=== PATIENT | female | born 1955 | race Caucasian/White ===

== ENCOUNTER 2018-11-06 14:53 | Outpatient (CLI) | payer BC ==
--- NOTE | 2018-11-06 15:41 | RAD ---
PA AND LATERAL VIEWS CHEST: Date: 11/06/18 HISTORY: Asthma. FINDINGS: The heart size is normal. The lungs are expanded without focal areas of consolidation, pneumothoraces , or pleural effusions. There are degenerative changes in the spine. IMPRESSION: No radiographic evidence of acute cardiopulmonary process. POS: [facility]
== END 2018-11-06 14:54 | disposition home or self-care (01) ==
LOC: SCSRAD 14:53
PROVIDERS: ATTEND Internal Medicine
DX: J45.909 Unspecified asthma, uncomplicated (principal)
CPT/HCPCS: 71046

== ENCOUNTER 2021-03-26 16:13 | Outpatient (CLI) | payer BC | END 2021-03-26 16:14 | disposition home or self-care (01) | LOC: BICRAD 16:13 | PROVIDERS: ATTEND Internal Medicine | DX: R05.9 Cough, unspecified (principal) | CPT/HCPCS: 71046 ==

== ENCOUNTER 2022-12-01 19:00 | Outpatient (CLI) | payer MEDICARE | END 2022-12-01 19:01 | disposition home or self-care (01) | LOC: SLEEPLAB 19:00 | PROVIDERS: ATTEND Internal Medicine | DX: G47.33 Obstructive sleep apnea (adult) (pediatric) (principal); R53.83 Other fatigue; R06.83 Snoring; I49.3 Ventricular premature depolarization | CPT/HCPCS: 95811 ==